=== PATIENT | male | born 1995 | race Caucasian/White ===

== ENCOUNTER 2020-10-13 08:15 | Outpatient (CLI) | payer OTHER, SELFPAY ==
--- NOTE | 2020-10-13 08:37 | US_ITS ---
WS: [id number] ULTRASOUND ABDOMEN CLINICAL INFORMATION: ABD NODULE/FATTY TUMOR ABD COMPARISON: None. FINDINGS: Ultrasound performed left abdominal wall in the area of palpable concern. No evidence of un derlying mass or lesion. Normal underlying soft tissues. Liver Size: Normal. Craniocaudal length: cm. Echogenicity: Normal. Surface nodularity: None. Mass (size and location): None. Bile ducts Intrahepatic ducts: Normal. Common bile duct diameter: 0.4 cm. Gallbladder Normal. Gallstones: None. Gallbladder sludge: None. Gallbladder wall thickening: None. Pericholecystic fluid: None. Sonographic Damico sign: Absent. Pancreas Normal as visualized. Spleen Splenomegaly: None. Craniocaudal length: 9.7 cm. Right kidney: Normal. Hydronephrosis: None. Size: 10.0 cm x 5.8 cm x 5.1 cm Left kidney: Normal. Hydronephrosis: None. Size: 10.3 cm x 4.5 cm x 5.2 cm. Abdominal aorta and IVC Visualized portions are normal. Ascites: None. US/US abdomen complete* [id number] IMPRESSION: Normal abdominal ultrasound
== END 2020-10-13 08:16 | disposition home or self-care (01) ==
PROVIDERS: Visit Provider Nurse Practitioner Family
DX: R19.09 Other intra-abdominal and pelvic swelling, mass and lump (principal); D17.5 Benign lipomatous neoplasm of intra-abdominal organs
CPT/HCPCS: 76700